=== PATIENT | female | born 1955 | race Caucasian/White ===

== ENCOUNTER 2022-09-16 14:21 | Outpatient (RCR) | payer MEDICARE, SELFPAY | END 2023-03-15 23:59 | disposition home or self-care (01) | LOC: CCIC 14:21 | PROVIDERS: PCP Family Medicine; Visit Provider Internal Medicine Hematology & Oncology | DX: C50.911 Malignant neoplasm of unspecified site of right female breast (principal); Z17.0 Estrogen receptor positive status [ER+]; Z79.811 Long term (current) use of aromatase inhibitors; Z90.13 Acquired absence of bilateral breasts and nipples; M85.88 Other specified disorders of bone density and structure, other site | CPT/HCPCS: 99212; 99214 ==

== ENCOUNTER 2022-09-25 14:18 | Outpatient (CLI) | payer MEDICARE, SELFPAY ==
--- NOTE | 2022-09-25 14:30 | CRLHL7_ITS ---
For Patients: As a result of the Century Cures Act, medical imaging exams and procedure reports are released immediately into your electronic medical record. You may view this report before your referring provider. If you have questions, please contact your health care provider. DXA BONE MINERAL DENSITY STUDY Reason for exam: Menopausal syndrome. Current height (in): 67. Weight (lb): 185. Menopause age: 53. Ethnicity: White. 1. Have you had a previous hip or vertebral fracture? No. 2. Have you had any fractures during your adult life which did not result from significant trauma (e.g., auto accident)? No. 3. Did either of your parents have a hip fracture? No. 4. Do you smoke? No. 5. Have you ever taken Glucocorticoids? No. 6. Do you have rheumatoid arthritis? No. 7. Do you have secondary osteoporosis? No. 8. Do you drink 3 or more alcoholic drinks per day? No. 9. Are you being treated for osteoporosis? No. 10. Have you ever taken any of the following medications: Actonel, Evista, Fosamax, Miacalcin, Reclast, Boniva, Forteo, HRT (i.e., estrogen/hormone therapy), Protelos, Prolia, Vitamin D, Calcium, other ??? please specify. ANSWER: Yes, vitamin D, HRT, and calcium. 11. Do you have any of the following medical conditions: Anorexia or bulimia, asthma or emphysema, end stage renal disease, hyperparathyroidism, any seizure disorders, cancer, inflammatory bowel diseases, hysterectomy, other ??? please specify. ANSWER: Yes, cancer. 12. What was your maximum height (inches)? 67. 13. Do you perform weight bearing exercise regularly? No. 14. Do you regularly consume dairy products? Yes. 15. Do you drink caffeinated beverages? Yes. If female: 16. At what age did your period start? 14. 17. Are you premenopausal? No. 18. How many full-term pregnancies have you had? 0. 19. Have you ever missed your period for more than 6 months in a row (not including or menopause)? No. TECHNIQUE: Bone mineral density study was performed using the [employer]. FINDINGS: The results of the study expressed as bone mineral density (BMD) are as follows: Lumbar spine L1 to L4: BMD: 0.859 g/cm2. T-score: -1.7. Z-score: 0.1 Neck Left: BMD: 0.873 g/cm2. T-score: 0.2. Z-score: 1.8 Right: BMD: 0.831 g/cm2. T-score: -0.2. Z-score: 1.4 Total Left: BMD: 0.887 g/cm2. T-score: -0.4. Z-score: 0.8 Right: BMD: 0.956 g/cm2. T-score: 0.1. Z-score: 1.4 IMPRESSION: Osteopenia. *Comparison exams done prior to 10/2019 were performed on different unit, [facility]. COMPARISON: Compared with scan of 04/26/2020, the bone mineral density has decreased by 5.4 percent at the spine and decreased by 5.8 percent at the hip. FRAX 10-year Fracture Risk Major Osteoporotic Fracture: 6.9% Hip Fracture: 0.3% Reported Risk Factors: [place] () Neck BMD=0.831, BMI= 29.0 Richardson Bowser M.D. Diagnostic Radiologist [email or web address] SYLVIE/santos graham/Dictated by: Richardson Bowser MD @ 09/26/2022 10:37:00 AM (Electronically Signed)
== END 2022-09-25 14:19 | disposition home or self-care (01) ==
LOC: RAD 14:19
PROVIDERS: PCP Family Medicine; Visit Provider Internal Medicine Hematology & Oncology
DX: N95.1 Menopausal and female climacteric states (principal); M85.89 Other specified disorders of bone density and structure, multiple sites
CPT/HCPCS: 77080

== ENCOUNTER 2023-01-12 14:19 | Outpatient (CLI) | payer MEDICARE, SELFPAY | END 2023-01-12 14:20 | disposition home or self-care (01) | LOC: NFLDREF 01-13 06:11 | PROVIDERS: PCP Family Medicine; Referring Provider Family Medicine; Visit Provider Nurse Practitioner Family | DX: R30.0 Dysuria (principal); N39.0 Urinary tract infection, site not specified | CPT/HCPCS: 87086 ==

== ENCOUNTER 2023-02-24 18:31 | Emergency (ER) | payer MEDICARE, SELFPAY ==
[2023-02-24 18:35] VITALS: BP 107/68; PULSE 117; RESP 18; TEMP 36.1; O2SAT 95; BMI 29.0
[2023-02-24 19:02] LABS: Appearance Urine Turbid (Clear); Bilirubin Urine 3+ (Negative); Blood Urine 3+ (Negative); Color Urine Red (Yellow); Glucose Urine Negative (Negative); Ketones Urine 1+ (Negative); Leukocyte Esterase Urine 3+ (Negative); Nitrite Urine Positive (Negative); Protein Urine 3+ (Negative); Specific Gravity Urine 1.025 (1.000-1.030)
[2023-02-24 19:19] LABS: RBC Urine >100 (0-2); WBC Urine 25-50 (0-5)
--- NOTE | 2023-02-24 19:19 | ED_ITS ---
HPI - Female Genitourinary General Time Seen by Provider: 19:19 Date Seen: 02/24/23 Chief complaint: Urogenital Problems, Female Stated complaint: believes she has a UTI Time Seen by Provider: 02/24/23 18:57 Source: patient and RN notes reviewed Mode of arrival: ambulatory Limitations: no limitations History of Present Illness HPI Narrative: Patient is coming in tonight with concern of UTI. She reportedly was treated for 1 on January 12 with Bactrim, did look back in that urine culture did not grow anything. On Friday she had a little burning with urination but then went away. She was fine all day yesterday. Tonight she was eating dinner out, went to the bathroom and started noticing the dysuria, frequency small amounts, also noted pinkish urine. She had a little nausea earlier. She does feel like she would be able to take oral antibiotics. She has no abdominal pain with this. MD elicited complaint: dysuria Related Data Home Medications Medication Instructions Recorded Confirmed blood sugar diagnostic (Accu-Chek #10 ea 09/16/22 01/12/23 SmartView Test Strips) calcium carbonate 600 mg-vitamin cap PO BID 09/16/22 01/12/23 D3 10 mcg (400 unit) capsule cholecalciferol (vitamin D3) 25 25 mcg PO QDAY 09/16/22 02/24/23 mcg (1,000 unit) capsule hydrochlorothiazide 25 mg tablet 25 mg PO DAILY 09/16/22 02/24/23 ibuprofen 200 mg tablet (Advil) 200 mg PO Q6H PRN 09/16/22 02/24/23 lisinopril 20 mg tablet 20 mg PO QDAY 09/16/22 02/24/23 simvastatin 40 mg tablet 40 mg PO QPM 09/16/22 02/24/23 cyclobenzaprine 10 mg tablet 10 mg PO 3XD PRN 01/12/23 02/24/23 Previous Rx's Medication Instructions Recorded anastrozole 1 mg tablet 1 mg PO DAILY #100 tabs 09/16/22 Allergies Allergy/AdvReac Type Severity Reaction Status Date / Time No Known Drug Allergies Allergy Verified 02/24/23 18:41 Review of Systems Narrative: As per HPI. [facility] Medical History (Updated 02/24/23 @ 19:28 by Bindu Monroy MD) Urinary tract infection ?N39.0 - Urinary tract infection, site not specified (ICD-10) Social History Smoking Status: Never smoker Do you use any of these nicotine containing products: None Second hand tobacco smoke exposure: No How often do you have a drink containing alcohol: 2-3 times a week AUDIT-C Alcohol total score: 3 Non-prescribed substance use: denies use Exam Const: Vital Signs, click to edit/add: Vital Signs - 24 hr 02/24/23 18:35 Temperature 96.9 F L Pulse Rate [Pulse Oximeter] 117 H Respiratory Rate 18 Blood Pressure [Le ft Upper Arm] 107/68 Pulse Oximetry 95 Oxygen Delivery Me thod Room Air Very pleasant 67-year-old female that is alert, interactive, no apparent distress. CV regular rate and rhythm, no murmur, normal S1 and S2. Abdomen is soft, nondistended, nontender, no organomegaly noted. Documenting provider has reviewed patient's vital signs: yes Course Course ED Course: Nursing staff had appropriately collected urinalysis in triage, was able to review with her the UTI appearance of her urinalysis when I went in to see her. We will culture the urine to ensure we get her on the appropriate antibiotic. Discussed cephalexin as my treatment recommendation. She would like that out of [facility] tonight. Vital Signs Vital signs: Initial Vital Signs Temperature 96.9 F L 02/24/23 18:35 Temperature Source Temporal Artery Scan 02/24/23 18:35 Pulse Rate 117 H 02/24/23 18:35 Respiratory Rate 18 02/24/23 18:35 Blood Pressure 107/68 02/24/23 18:35 Blood Pressure Mean 81 02/24/23 18:35 Blood Pressure Position Sitting 02/24/23 18:35 Pulse Oximetry 95 02/24/23 18:35 Oxygen Delivery Method Room Air 02/24/23 18:35 Vital Signs Temperature 96.9 F L 02/24/23 18:35 Pulse Rate 117 H 02/24/23 18:35 Respiratory Rate 18 02/24/23 18:35 Blood Pressure 107/68 02/24/23 18:35 Pulse Oximetry 95 02/24/23 18:35 Oxygen Delivery Method Room Air 02/24/23 18:35 Temperature 96.9 F L 02/24/23 18:35 Pulse Rate 117 H 10/02/23 18:35 Respiratory Rate 18 02/24/23 18:35 Blood Pressure 107/68 02/24/23 18:35 Pulse Oximetry 95 02/24/23 18:35 Oxygen Delivery Method Room Air 02/24/23 18:35 MDM - Female Genitourinary Lab Data Attestation: I reviewed the patient's lab results. Labs: Lab Results 02/24/23 Range/Units 18:44 Urine Color Red A (Yellow) Urine Appearance Turbid A (Clear) Urine pH 5.0 (5.0-8.5) Ur Specific [place] 1.025 (1.000-1.030) Urine Protein 3+ A (Negative) Urine Glucose (UA) Negative (Negative) Urine Ketones 1+ A (Negative) Urine Blood 3+ A (Negative) Urine Nitrite Positive A (Negative) Urine Bilirubin 3+ A (Negative) Urine Urobilinogen 1.0 (0.2-1.0) Ur Leukocyte Esterase 3+ A (Negative) Urine RBC >100 A (0-2) Urine WBC 25-50 A (0-5) Ur Squamous Epith Cells None (None-Few) Urine Bacteria Moderate A (None) Critical Care Time Critical Care Time Critical Care Time: No Discharge Plan Discharge Clinical Impression: Urinary tract infection Patient Disposition: Home, Self-Care Condition: Stable Instructions: Urinary Tract Infection in Women (ED) Additional Instructions: Start oral antibiotic cephalexin tonight and take 3 times a day for 5 days. If you are not improving in this time frame, worsening at any point, have further concerns, do recommend re-evaluation. Do recommend drinking adequate fluids for a goal of clear looking urine. Activity Level: Activity as Tolerated Prescriptions: No Action (DME) Accu-Chek SmartView Test Strip Strip See Rx Instructions .ROUTE DAILY Qty: 10 Rx Instructions: As directed simvastatin 40 mg tablet 40 mg PO QPM lisinopril 20 mg tablet 20 mg PO QDAY hydrochlorothiazide 25 mg tablet 25 mg PO DAILY ibuprofen [Advil] 200 mg tablet 200 mg PO Q6H PRN calcium carbonate-vitamin D3 600 mg-10 mcg (400 unit) capsule PO BID cholecalciferol (vitamin D3) 25 mcg (1,000 unit) capsule 25 mcg PO QDAY anastrozole 1 mg tablet 1 mg PO DAILY Qty: 100 3RF cyclobenzaprine 10 mg tablet 10 mg PO 3XD PRN Follow Up/Referrals: Lor Knight MD [Primary Care Provider] - Stand Alone Forms: [employer] Info Instructions
[2023-02-24 19:20] LABS: Bacteria Urine Moderate
== END 2023-02-24 19:45 | disposition home or self-care (01) ==
LOC: ED 19:33
PROVIDERS: Emergency Provider Family Medicine; PCP Family Medicine
DX: N39.0 Urinary tract infection, site not specified (principal)
CPT/HCPCS: 81001; 87086; 87186; 99282; 99283

== ENCOUNTER 2023-04-28 10:13 | Outpatient (RCR) | payer MEDICARE, SELFPAY ==
--- NOTE | 2023-04-01 11:11 | ONC.NURNOTE ---
Patient stopped by to schedule 6 mth follow up that was due in February Tiff does not want to do the BCI test that was discussed at her August 2022 visit next appt scheduled for 04/28/23
== END 2023-10-25 23:59 | disposition home or self-care (01) ==
LOC: CCIC 10:13
PROVIDERS: PCP Family Medicine; Visit Provider Internal Medicine Hematology & Oncology
DX: C50.911 Malignant neoplasm of unspecified site of right female breast (principal); Z17.0 Estrogen receptor positive status [ER+]; Z90.13 Acquired absence of bilateral breasts and nipples; Z79.811 Long term (current) use of aromatase inhibitors; M85.88 Other specified disorders of bone density and structure, other site
CPT/HCPCS: 99212; 99214

== ENCOUNTER 2024-05-24 09:43 | Outpatient (CLI) | payer MEDICARE, SELFPAY ==
--- NOTE | 2024-05-24 09:45 | CRLHL7_ITS ---
For Patients: As a result of the Century Cures Act, medical imaging exams and procedure reports are released immediately into your electronic medical record. You may view this report before your referring provider. If you have questions, please contact your health care provider. Indication: chest wall tenderness, left chest wall 10 cm and 16 cm areas lateral from most medial edge of mastectomy incision, areas of tenderness Technique: Grayscale and color Doppler ultrasound of the chest wall performed in the areas of concern. Comparison: None Findings: Postmastectomy changes are present. No fluid collection or abscess. No suspicious mass or abnormal vascularity. At 16 cm from the medial edge of the incision, there is a focal area of scar tissue measuring 5 x 11 x 10 millimeters. Ill-defined scar tissue present 10 cm from the medial edge of the incision. Impression: No suspicious findings. Normal scar tissue is present. Dictated by Richardson Bowser MD @ 05/24/2024 12:11:01 PM (Electronically Signed)
== END 2024-05-24 09:44 | disposition home or self-care (01) ==
LOC: US 09:43
PROVIDERS: PCP Family Medicine; Visit Provider Physician Assistant
DX: C50.919 Malignant neoplasm of unspecified site of unspecified female breast (principal); R07.89 Other chest pain
CPT/HCPCS: 76604

== ENCOUNTER 2024-07-15 12:50 | Outpatient (RCR) | payer MEDICARE, SELFPAY | END 2024-10-26 23:59 | disposition home or self-care (01) | LOC: CCIC 12:50 | PROVIDERS: PCP Family Medicine; Visit Provider Physician Assistant | DX: C50.911 Malignant neoplasm of unspecified site of right female breast (principal); Z17.0 Estrogen receptor positive status [ER+]; R22.2 Localized swelling, mass and lump, trunk; Z90.13 Acquired absence of bilateral breasts and nipples | CPT/HCPCS: 99213; 99214; G0463 ==